=== PATIENT | male | born 1955 | race American Indian/Alaskan Native ===

== ENCOUNTER 2021-10-21 16:23 | Emergency (ER) | payer OTHER ==
[2021-10-21 16:40] VITALS: BP 137/97
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
--- NOTE | 2021-10-22 01:53 | Cat Scan Report ---
CT HEAD WITHOUT CONTRAST INDICATION / CLINICAL INFORMATION: headache. TECHNIQUE: All CT scans at this location are performed using CT dose reduction for ALARA by means of automated e xposure control. COMPARISON: 06/02/2021 FINDINGS: Diffuse cerebral atrophy with compensatory increase in ventricular size. No acute intracranial hemorr lisa. No midline shift or mass effect. Old lacunar infarcts on the left basal ganglia region. Nonspec ific white matter change in the periventricular and central white matter suggests microangiopathy. Vi sualized sinuses are clear ADDITIONAL FINDINGS: None. IMPRESSION: 1. No acute intracranial findings. Diffuse cerebral atrophy. Signer Name: Eliel Velasquez MD Signed: 10/22/2021 1:49 AM Workstation Name: [id number]
== END 2021-10-22 11:26 | disposition home or self-care (01) ==
LOC: ED 16:23
DX: R07.9 Chest pain, unspecified (principal); V89.2XXA Person injured in unspecified motor-vehicle accident, traffic, initial encounter; Y93.89 Activity, other specified; Y92.89 Other specified places as the place of occurrence of the external cause; Y99.8 Other external cause status
CPT/HCPCS: 70250; 70450; 99284